=== PATIENT | male | born 1955 | race Caucasian/White ===

== ENCOUNTER 2019-10-18 07:49 | Outpatient (CLI) | payer OTHER, SELFPAY ==
[2019-10-18 08:04] LABS: Add Urine Microscopic? YES; Appearance Urine Clear (Clear); Basophils Absolute Auto 0.03 K/mm3 (0.00-0.10); Basophils Percent Auto 0.5 % (0.0-1.0); Bilirubin Urine Negative (Negative); Blood Urine Negative (Negative); Color Urine Yellow (Yellow); Eosinophils Percent Auto 1.6 % (1.0-6.0); Glucose Urine UA Negative (Negative); Hematocrit 44.5 % (40.0-54.0); Hemoglobin 15.2 g/dL (14.0-18.0); Immature Granulocyte Absolute 0.01 K/mm3 (0.00-0.00); Immature Granulocyte Percent A 0.2 % (0.0-0.0); Ketones Urine Trace (Negative); Leukocyte Esterase Ur Negative (Negative); Lymphocytes Absolute Auto 2.26 K/mm3 (1.10-4.50); Lymphocytes Percent Auto 35.7 % (18.0-42.0); Mean Corpuscular HGB Conc 34.2 g/dL (32.0-36.0); Mean Corpuscular Hemoglobin 28.8 pg (27.0-31.0); Mean Corpuscular Volume 84.4 fL (78.0-102.0); Mean Platelet Volume 10.3 fl (8.7-11.0); Monocytes Absolute Auto 0.51 K/mm3 (0.10-0.90); Monocytes Percent Auto 8.1 % (2.0-11.0); Neutrophils Absolute Auto 3.4 K/mm3 (1.7-7.2); Neutrophils Percent Auto 53.9 % (50.0-70.0); Nitrate Urine Negative (Negative); Platelet Count Result 184 K/mm3 (150-420); Protein Urine Negative (Negative); Red Blood Count 5.27 M/mm3 (4.70-6.10); Red Cell Distribution Width 12.6 % (11.6-14.4); Specific Grav Ur >= 1.030 (1.010-1.020); Urobilinogen Urine 0.2 mg/dL (0.2-1.0); White Blood Count 6.3 K/mm3 (4.8-10.8); pH Urine 5.5 (5.0-8.0)
[2019-10-18 08:09] LABS: Bacteria Urine None seen /hpf; Mucus Urine Moderate /lpf; RBC Urine 0-2 /hpf (0-2); WBC Urine 0-3 /hpf (0-3)
[2019-10-18 09:07] LABS: Alanine Aminotransferase 33 U/L (16-63); Albumin Level 3.9 g/dL (3.4-5.0); Alkaline Phosphatase 102 U/L (46-116); Anion Gap 6.7 mmol/L (7-16); Aspartate Amino Transferase 18 U/L (15-37); Bilirubin,Total 0.5 mg/dL (0.00-1.00); Blood Urea Nitrogen 11 mg/dL (7-18); Calcium 8.8 mg/dL (8.5-10.1); Carbon Dioxide 30 mmol/L (21-32); Chloride 101 mmol/L (98-108); Cholesterol 192 mg/dL (0-200); Estimated Glomerular Filt Rate > 60; Glucose 103 mg/dL (70-99); HDL Direct 41 mg/dL (40-60); LDL Cholesterol Calculated 137 mg/dL (<130); Osmolality Calculated 277 mOsm/kg (285-295); Potassium 3.7 mmol/L (3.5-5.1); Prostate Specific Antigen 0.9 ng/mL (< OR = 4.0); Sodium 134 mmol/L (136-145); Triglycerides 68 mg/dL (0-150)
== END 2019-10-18 07:50 | disposition home or self-care (01) ==
PROVIDERS: PCP Internal Medicine; Visit Provider Internal Medicine
DX: E78.5 Hyperlipidemia, unspecified (principal); R73.01 Impaired fasting glucose; Z12.5 Encounter for screening for malignant neoplasm of prostate
CPT/HCPCS: 36415; 80053; 80061; 81001; 84153; 85025; G0103

== ENCOUNTER 2019-12-07 11:02 | Outpatient (RCR) | payer OTHER, SELFPAY ==
--- NOTE | 2019-12-07 12:01 | PTOPEVAL ---
Thank you for referring Jeff Benson to [facility].? The patient is scheduled to be seen for therapy? ____x/week for ___ weeks. Please review, sign, date and return this plan of care BRENDON. I agree with and certify that the following plan of care is medically necessary. Referring Physician Date Admitting Provider: Attending Provider: Christiano Fong MD Referring Provider: *PT Outpatient Evaluation Start: 12/07/19 11:10 Freq: Status: Active Protocol: Document 12/07/19 11:10 RUST (Rec: 12/07/19 11:57 RUST [email or web address]) Therapy Assessment Status Assessment Status Assessment Status Evaluation Evaluation Information Problem Diagnosis R 4th digit trigger finger. Onset 12/02/19 Additional Evaluation Detail quick dash = Subjective Information patient reports he has had Query Text:As Reported By Patient/ trigger finger of the L thumb Family in the past. he reports he is not sure what caused him to get the trigger finger in the R 4th digit this time. he reports he has started diclofenac and has had an injection to the R 4th digit recently. he reports he has not seen a surgeon yet. Prior Level of Function Comments Additional Prior Level of Function prior to noticing having pain Comments in the R 4th digit, patient had no issues with closing his hand to make a fist and opening the hand back up. Pain Assessment Timing of Pain Assessment Timing of Pain Assessment Assessment Pain Scale Pain Scale Used Numeric (1 - 10) Self Report Pain Assessment Right Finger, Ring Reported Pain Level 2 Greatest Pain Intensity 6 Pain Score Pain Score 2: Self Report Upper Extremity Range of Motion General Upper Extremity Range of Motion Gross Upper Extremity Range of Motion full L fist formation and Comments extension of all fingers without limitations -slight decreased flexion of the R hand ring and small finger flexion Finger Range of Motion Right Ring Finger PIP Joint Flexion - Active 90 Ring Finger PIP Joint Extension - Active 0 Ring Finger DIP Joint Flexion - Active 70 Ring Finger DIP Extension - Active 0 Little Finger PIP Joint Flexion - Active 85 Little Finger PIP Joint Extension - 0 Active Little Finger DIP Joint Flexion - Active 60 Little Finger DIP Joint Extension - 0 Ac
== END 2019-12-23 14:48 | disposition home or self-care (01) ==
LOC: CHSPT 11:02
PROVIDERS: PCP Internal Medicine; Visit Provider Internal Medicine
DX: M65.341 Trigger finger, right ring finger (principal)
CPT/HCPCS: 97035; 97110; 97161

== ENCOUNTER 2021-03-15 07:24 | Outpatient (CLI) | payer OTHER, SELFPAY ==
[2021-03-15 08:31] LABS: Alanine Aminotransferase 24 U/L (16-63); Alkaline Phosphatase 108 U/L (46-116); Anion Gap 11 mmol/L (8-16); Aspartate Amino Transferase < 10 U/L (15-37); Blood Urea Nitrogen 11 mg/dL (7-18); Calcium 9.4 mg/dL (8.5-10.1); Carbon Dioxide 29 mmol/L (21-32); Chloride 100 mmol/L (98-108); Cholesterol 184 mg/dL (0-200); Estimated Glomerular Filt Rate > 60; Glucose 114 mg/dL (70-99); HDL Direct 56 mg/dL (40-60); LDL Cholesterol Calculated 119 mg/dL (<130); Osmolality Calculated 290 mOsm/kg (285-295); Potassium 4.2 mmol/L (3.5-5.1); Prostate Specific Antigen 1.1 ng/mL (< OR = 4.0); Sodium 140 mmol/L (136-145); Total Protein 7.3 g/dL (6.4-8.2); Triglycerides 45 mg/dL (0-150)
[2021-03-15 15:20] LABS: Hemoglobin A1C 5.7 % (<5.7)
== END 2021-03-15 07:25 | disposition home or self-care (01) ==
LOC: CHSLAB 07:26
PROVIDERS: PCP Internal Medicine; Visit Provider Internal Medicine
DX: R73.03 Prediabetes (principal); E78.5 Hyperlipidemia, unspecified; N40.0 Benign prostatic hyperplasia without lower urinary tract symptoms
CPT/HCPCS: 36415; 80053; 80061; 83036; 84153

== ENCOUNTER 2021-11-02 16:38 | Emergency (ER) | payer MEDICARE, SELFPAY ==
--- NOTE | ~2021-11-02 | XR_ITS ---
EXAMINATION: XR wrist LT min 3V DATE: 11/02/2021 17:38 INDICATION: Left wrist pain, initial encounter TECHNIQUE: Posteroanterior, ulnar deviation, oblique, and lateral views of the left wrist were obtain ed. COMPARISON: None available FINDINGS: There is an acute, traumatic, closed, comminuted intra-articular fracture of the distal rad ius. There are 30 degrees of dorsal tilt of the distal articular surface of the radius. The distal fr acture fragment is dorsally displaced approximately one cortical width. An ulnar styloid avulsion is noted. No additional acute osseous abnormality is seen. There is calcified atherosclerosis. Soft tiss ue swelling surrounds the fractures. IMPRESSION: 1. Comminuted intra-articular fracture of the distal radius with dorsal tilt. 2. Ulnar styloid avulsion. Reviewed, dictated and finalized at location L.
--- NOTE | ~2021-11-02 | XR_ITS ---
EXAMINATION: XR elbow LT min 3V DATE: 11/02/2021 17:38 INDICATION: Left elbow pain TECHNIQUE: Anteroposterior, two oblique and lateral views of the left elbow were obtained. COMPARISON: None. FINDINGS: Alignment is normal. No fracture or joint effusion. Joint spaces are normal. There is mild posterior soft tissue swelling. IMPRESSION: 1. Soft tissue swelling without acute osseous abnormality. Reviewed, dictated and finalized at location L.
[2021-11-02 17:04] VITALS: BP 136/83; PULSE 81; RESP 16; TEMP 36.7; O2SAT 97
[2021-11-02] MEDS: MORPHINE SULFATE (*CRX) 4 MG/ML INJ IM (17:44)
[2021-11-02] MEDS: ONDANSETRON HCL ODT 4 MG TABLET PO (17:44)
--- NOTE | 2021-11-02 17:55 | ED.UPPEXIN ---
HPI - Extremity Injury (Upper) General Chief Complaint: Extremity Injury, Upper Stated Complaint: fell off ladder Left elbow and wrist and dizzy Time Seen by Provider: 11/02/21 16:42 Source: patient and RN notes reviewed Mode of arrival: ambulatory Limitations: no limitations History of Present Illness HPI narrative: left elbow and wrist pain after a fall. complaint: injury to: left, elbow and wrist Onset (ago): hour(s) (1) Other Extremity Injury: Left: wrist and elbow Other injuries: none Place: outdoors Severity: mild Severity scale (1-10): 4 Relieving factors: immobilization Exacerbating factors: movement of extremity Context: fall Associated symptoms: other (dizziness) Related Data Home Medications Medication Instructions Recorded Confirmed atorvastatin 10 mg tablet 10 mg PO DAILY 03/09/19 11/02/21 Allergies Allergy/AdvReac Type Severity Reaction Status Date / Time No Known Allergies Allergy Unverified 11/02/21 17:07 Review of Systems Review of Systems: All systems reviewed & are unremarkable except as noted in HPI and below Constitutional: Constitutional: Reports no additional constitutional complaints Eyes: Eyes: Reports no additional eye complaints ENT: Reports system reviewed and no additional complaints, except as documented Cardiovascular: Cardiovascular: Reports no additional cardiovascular complaints Respiratory: Respiratory: Reports no additional respiratory complaints Gastrointestinal: Gastrointestinal: Reports no additional gastrointestinal complaints Musculoskeletal: Musculoskeletal: Reports no additional musculoskeletal complaints and Reports arthralgias Integumentary/Breasts: Skin/Breast: Reports system reviewed and no additional complaints, except as docu Neurologic: Reports system reviewed and no additional complaints, except as documented and Reports dizziness Psychiatric: Psychiatric: Reports no additional psychiatric complaints Endocrine: Endocrine: Reports no additional endocrine complaints Hematologic/Lymphatic: Hematologic/Lymphatic: Reports no additional hematologic/lymphatic complaints Allergic/Immunologic: Allergic/Immunologic: Reports no additional allergic/immunologic complaints PMFSH Past Medical History Medical History Fracture of wrist Surgical History Surgical History H/O uvulectomy Hx of tonsillectomy Status post laser cataract surgery of both eyes Family History Family History Sibling Malignant neoplasm of prostate Exam Const: General: no acute distress Nutritional Appearance: well nourished Orientation/consciousness: patient oriented x3 Limitations: no limitations HENMT: Head: normal to inspection Ears: external ears normal, TM's normal bilaterally and EAC's normal General nose exam: Normal external nose present and Normal nares present Face and sinus: normal facial exam and sinuses nontender Mouth: Yes Normal oral and palatal mucosa present and Yes moist mucous membranes Teeth and gingiva: dentition normal Throat: posterior oropharynx normal Eyes: Conjunctivae: conjunctivae normal Pupils: Equal, round and reactive pupils present EOM: EOMs intact bilaterally Neck: Neck: normal visual inspection, no lymphadenopathy and no meningeal signs Chest: Chest palpation & inspection: normal inspection of the chest Resp: Effort & Inspection: normal respiratory effort Auscultation: clear to auscultation bilaterally Cardio: Rate: regular rate Rhythm: regular rhythm GI: GI Palp: Yes Soft to palpation and No Tenderness to palpation present (GI) Auscultation: normal bowel sounds : General: Yes bladder normal to palpation and Yes no CVA tenderness Back/Spine/Pelvis: Back: no CVA tenderness Skin: General skin exam: normal color Rashes: no rashes Wounds: no wounds Neur
[2021-11-02 18:03] VITALS: BP 138/83; PULSE 88; RESP 18; TEMP 37.2; O2SAT 99
== END 2021-11-02 18:07 | disposition home or self-care (01) ==
PROVIDERS: Emergency Provider Emergency Medicine; PCP Internal Medicine
DX: S62.102A Fracture of unspecified carpal bone, left wrist, initial encounter for closed fracture (principal); W19.XXXA Unspecified fall, initial encounter
CPT/HCPCS: 29125; 73080; 73110; 96372; 99284; A4565; A9270; J2270

== ENCOUNTER 2021-11-05 11:10 | Outpatient (CLI) | payer MEDICARE, SELFPAY ==
--- NOTE | ~2021-11-05 | XR_ITS ---
EXAMINATION: XR shoulder LT min 2V DATE: 11/05/2021 11:31 INDICATION: Left shoulder injury. TECHNIQUE: 4 views of left shoulder were obtained. COMPARISON: None. FINDINGS: Bone alignment is normal. No fracture. There is mild osteoarthritis of glenohumeral joint. Acromioclavicular joint is normal. IMPRESSION: 1. Mild glenohumeral joint osteoarthritis. Reviewed, dictated and finalized at location A.
== END 2021-11-05 11:11 | disposition home or self-care (01) ==
LOC: CHSLAB 11:13
PROVIDERS: PCP Internal Medicine; Visit Provider Internal Medicine
DX: S49.92XA Unspecified injury of left shoulder and upper arm, initial encounter (principal)
CPT/HCPCS: 73030

== ENCOUNTER 2022-03-13 07:51 | Outpatient (CLI) | payer MEDICARE, SELFPAY ==
[2022-03-13 08:04] LABS: Basophils Absolute Auto 0.03 K/mm3 (0.00-0.10); Basophils Percent Auto 0.5 % (0.0-1.0); Eosinophils Absolute Auto 0.09 K/mm3 (0.02-0.50); Eosinophils Percent Auto 1.5 % (1.0-6.0); Hematocrit 43.5 % (37.0-46.0); Hemoglobin 14.6 g/dL (12.4-15.3); Immature Granulocyte Absolute 0.01 K/mm3 (0.00-0.00); Immature Granulocyte Percent A 0.2 % (0.0-0.0); Lymphocytes Absolute Auto 1.78 K/mm3 (1.10-4.50); Lymphocytes Percent Auto 30.4 % (18.0-42.0); Mean Corpuscular HGB Conc 33.6 g/dL (32.0-36.0); Mean Corpuscular Volume 86.5 fL (78.0-102.0); Mean Platelet Volume 10.1 fl (8.7-11.0); Monocytes Absolute Auto 0.55 K/mm3 (0.10-0.90); Monocytes Percent Auto 9.4 % (2.0-11.0); Neutrophils Absolute Auto 3.4 K/mm3 (1.7-7.2); Platelet Count Result 208 K/mm3 (150-420); Red Blood Count 5.03 M/mm3 (4.70-6.10); White Blood Count 5.9 K/mm3 (4.8-10.8)
[2022-03-13 08:14] LABS: Add Urine Microscopic? YES; Appearance Urine Clear (Clear); Bilirubin Urine Negative (Negative); Blood Urine Negative (Negative); Color Urine Yellow (Yellow); Glucose Urine UA Negative (Negative); Ketones Urine Negative (Negative); Leukocyte Esterase Ur Trace (Negative); Nitrate Urine Negative (Negative); Protein Urine Negative (Negative); Specific Grav Ur >= 1.030 (1.010-1.020); Urobilinogen Urine 0.2 mg/dL (0.2-1.0)
[2022-03-13 08:29] LABS: Bacteria Urine Trace /hpf; RBC Urine None seen /hpf (0-2); WBC Urine 0-3 /hpf (0-3)
[2022-03-13 08:30] LABS: Mucus Urine Moderate /lpf
[2022-03-13 09:04] LABS: Alanine Aminotransferase 28 U/L (16-63); Alkaline Phosphatase 96 U/L (46-116); Anion Gap 7 mmol/L (8-16); Aspartate Amino Transferase 15 U/L (15-37); Bilirubin,Total 0.5 mg/dL (0.00-1.00); Blood Urea Nitrogen 12 mg/dL (7-18); Carbon Dioxide 30 mmol/L (21-32); Chloride 108 mmol/L (98-108); Cholesterol 182 mg/dL (0-200); Estimated Glomerular Filt Rate > 60; Glucose 105 mg/dL (70-99); HDL Direct 51 mg/dL (40-60); LDL Cholesterol Calculated 119 mg/dL (<130); Osmolality Calculated 299 mOsm/kg (285-295); Potassium 4.1 mmol/L (3.5-5.1); Sodium 145 mmol/L (136-145); Thyroid Stimulating Hormone 1.96 uIU/mL (0.36-3.74); Total Protein 6.9 g/dL (6.4-8.2); Triglycerides 58 mg/dL (0-150)
[2022-03-13 12:48] LABS: Hemoglobin A1C 5.7 % (<5.7)
== END 2022-03-13 07:52 | disposition home or self-care (01) ==
LOC: CHSLAB 07:53
PROVIDERS: PCP Internal Medicine; Visit Provider Internal Medicine
DX: E78.5 Hyperlipidemia, unspecified (principal); G47.33 Obstructive sleep apnea (adult) (pediatric); Z00.00 Encounter for general adult medical examination without abnormal findings; Z12.5 Encounter for screening for malignant neoplasm of prostate; R73.9 Hyperglycemia, unspecified
CPT/HCPCS: 36415; 80053; 80061; 81001; 83036; 84153; 84443; 85025; G0103

== ENCOUNTER 2023-02-06 10:13 | Emergency (ER) | payer MEDICARE, SELFPAY ==
--- NOTE | ~2023-02-06 | CT_ITS ---
EXAMINATION: CT abdomen pelvis wo con DATE: 02/06/2023 10:57 INDICATION: Abdominal and flank pain TECHNIQUE: Computed tomography (CT) of the abdomen and pelvis was performed without intravenous contr ast. Automated exposure control and iterative reconstruction technique were employed. Exam dose: 680 .51 mGy-cm total exam DLP. COMPARISON: None. FINDINGS: The lung bases are clear. Normal heart size. No pericardial or pleural effusion. The liver, spleen, pancreas, adrenal glands and kidneys are unremarkable on this limited noncontrast examination. The gallbladder is present. No bile duct or pancreatic duct dilatation. There is a 3 mm left uretero vesicle junction calculus with mild left hydroureteronephrosis and left perinephric and periureteral stranding. Right 3.8 cm upper pole renal cyst. There is moderate prostate enlargement. Moderate diffuse bladder wall thickening, likely due to pros tatomegaly. Bilateral fat containing inguinal hernias. Normal appendix. No bowel obstruction or intraperitoneal free air. There are multiple diverticula o f the right and left colon. No evidence of diverticulitis. No bowel obstruction or intraperitoneal free air. There is atherosclerotic calcification of the abdominal aorta, but no abdominal aortic aneurysm. No intraperitoneal or retroperitoneal or pelvic mass lesion or lymphadenopathy or ascites. Small fat containing umbilical hernia. Moderate degenerative disc disease at L4-5 and severe degenerative disc disease at L5-S1. IMPRESSION: 3 mm left ureterovesical junction calculus with mild left hydroureteronephrosis and left perinephric and periureteral stranding 3.8 cm right renal cyst Prostate enlargement Normal appendix Colon diverticulosis Reviewed, dictated and finalized at Location A. Reviewed, dictated and finalized at location L. IMPRESSION: 3 mm left ureterovesical junction calculus with mild left hydroure teronephrosis and left perinephric and periureteral stranding 3.8 cm right renal cyst Prostate enlargement Normal appendix Colon diverticulosis
[2023-02-06 10:20] VITALS: BP 187/87; PULSE 65; RESP 18; TEMP 36.3; O2SAT 100
[2023-02-06] MEDS: SODIUM CHLORIDE 0.9% IV 1,000 ML 999 ML IV CONT (10:35)
--- NOTE | 2023-02-06 10:35 | ED.ABDPAIN ---
HPI - Abdominal Pain General Chief Complaint: Abdominal Pain Stated Complaint: left flank pain Time Seen by Provider: 02/06/23 10:15 Source: patient and family Mode of arrival: ambulatory Limitations: no limitations History of Present Illness HPI narrative: this is a 67-year-old male that presents with left flank pain radiating into his left groin area with some some dysuria with no hematuria pain level about a 6/10 is afebrile with some mild nausea with no vomiting no chest pain no shortness of breath, patient is afebrile has a history of kidney stones. MD elicited complaint: abdominal pain and flank pain Onset (ago): hour(s) Pain Consistency: constant Location: LLQ and L flank Quality: aching Migration to: LLQ and L flank Related Data Home Medications Medication Instructions Recorded Confirmed atorvastatin 10 mg tablet 10 mg PO DAILY 03/09/19 02/06/23 Allergies Allergy/AdvReac Type Severity Reaction Status Date / Time No Known Allergies Allergy Unverified 02/06/23 10:29 Review of Systems Review of Systems: All systems reviewed & are unremarkable except as noted in HPI and below PMFSH Past Medical History Medical History Fracture of wrist Surgical History Surgical History H/O uvulectomy Hx of tonsillectomy Status post laser cataract surgery of both eyes Family History Family History Sibling Malignant neoplasm of prostate Exam Const: General: healthy appearing and no acute distress Nutritional Appearance: well nourished Orientation/consciousness: patient oriented x3 Eyes: Conjunctivae: conjunctivae normal Pupils: Equal, round and reactive pupils present EOM: EOMs intact bilaterally Neck: Neck: normal visual inspection, no lymphadenopathy and no meningeal signs Chest: Chest palpation & inspection: normal inspection of the chest Resp: Effort & Inspection: normal respiratory effort Auscultation: clear to auscultation bilaterally Cardio: Rate: regular rate Rhythm: regular rhythm GI: GI Palp: Yes Soft to palpation Skin: General skin exam: normal color Rashes: no rashes Neuro: General: patient oriented x3 Cranial nerves: Yes Nystagmus not present Extrem: General: normal to inspection Psych: Mental Status: mental status grossly normal Course Course Emergency Course: Patient started on IV fluids, given Toradol IV 30mg for pain relief, Zofran for nausea, blood work performed and reviewed and CT scan of abdomen and pelvis without contrast performed and reviewed with patient, which shows a UVJ stone 3mm on the left with no obstruction no hydronephrosis. Vital Signs Vital signs: Vital Signs Temperature 36.3 C L 02/06/23 10:20 Pulse Rate 65 02/06/23 10:20 Respiratory Rate 18 02/06/23 10:20 Blood Pressure 187/87 H 02/06/23 10:20 Pulse Oximetry 100 02/06/23 10:20 Oxygen Delivery Room Air 02/06/23 10:20 Temperature 36.3 C L 02/06/23 10:20 Pulse Rate 65 02/06/23 10:20 Respiratory Rate 18 02/06/23 10:20 Blood Pressure 187/87 H 02/06/23 10:20 Pulse Oximetry 100 02/06/23 10:20 Oxygen Delivery Room Air 02/06/23 10:20 MDM - Abdominal Pain Lab Data Labs: Lab Results 02/06/23 Range/Units 10:33 Urine Color Pending Urine Appearance Pending Urine pH Pending Ur Specific [place] Pending Urine Protein Pending Urine Glucose (UA) Pending Urine Ketones Pending Ur Blood (Man) Pending Urine Nitrate Pending Urine Bilirubin Pending Urine Urobilinogen Pending Ur Leukocyte Esterase Pending Discharge Plan Discharge Clinical Impression: Urolithiasis Qualifiers: Urinary calculus location: ureter Qualified Code(s): N20.1 - Calculus of ureter Patient Disposition: Home, Self-Care Condition: Stable Instructions: Antibiotic Fo
[2023-02-06 10:37] LABS: Appearance Urine Clear (Clear); Bilirubin Urine Negative (Negative); Blood Urine 1+ (Negative); Color Urine Yellow (Yellow); Glucose Urine UA Negative (Negative); Ketones Urine Negative (Negative); Leukocyte Esterase Ur Negative (Negative); Nitrate Urine Negative (Negative); Protein Urine Trace (Negative); Specific Grav Ur >= 1.030 (1.010-1.020)
[2023-02-06] MEDS: KETOROLAC 30 MG/ML VIAL (*BKC) IV PUSH (10:40)
[2023-02-06] MEDS: ONDANSETRON INJ 4 MG/2 ML VIAL IV PUSH (10:40)
[2023-02-06 10:41] LABS: Add Urine Microscopic? YES; Bacteria Urine Rare /hpf; Mucus Urine Few /lpf; WBC Urine None seen /hpf (0-3)
[2023-02-06 10:46] LABS: Basophils Absolute Auto 0.03 K/mm3 (0.00-0.10); Basophils Percent Auto 0.3 % (0.0-1.0); Eosinophils Absolute Auto 0.02 K/mm3 (0.02-0.50); Eosinophils Percent Auto 0.2 % (1.0-6.0); Hematocrit 45.5 % (37.0-46.0); Hemoglobin 15.4 g/dL (12.4-15.3); Immature Granulocyte Absolute 0.03 K/mm3 (0.00-0.00); Immature Granulocyte Percent A 0.3 % (0.0-0.0); Lymphocytes Absolute Auto 1.01 K/mm3 (1.10-4.50); Mean Corpuscular HGB Conc 33.8 g/dL (32.0-36.0); Mean Corpuscular Hemoglobin 29.5 pg (27.0-31.0); Mean Corpuscular Volume 87.2 fL (78.0-102.0); Mean Platelet Volume 10.1 fl (8.7-11.0); Monocytes Absolute Auto 0.48 K/mm3 (0.10-0.90); Monocytes Percent Auto 5.2 % (2.0-11.0); Neutrophils Absolute Auto 7.6 K/mm3 (1.7-7.2); Platelet Count Result 219 K/mm3 (150-420); Red Blood Count 5.22 M/mm3 (4.70-6.10); Red Cell Distribution Width 12.6 % (11.6-14.4); White Blood Count 9.2 K/mm3 (4.8-10.8)
[2023-02-06 11:05] LABS: Alanine Aminotransferase 22 U/L (16-63); Albumin Level 3.9 g/dL (3.4-5.0); Alkaline Phosphatase 108 U/L (46-116); Anion Gap 10 mmol/L (8-16); Aspartate Amino Transferase 11 U/L (15-37); Bilirubin,Total 0.5 mg/dL (0.00-1.00); Blood Urea Nitrogen 12 mg/dL (7-18); Calcium 9.5 mg/dL (8.5-10.1); Carbon Dioxide 28 mmol/L (21-32); Chloride 102 mmol/L (98-108); Estimated CRCL calculation 70 ml/min; Estimated Glomerular Filt Rate > 60; Glucose 139 mg/dL (70-99); Lipase 19 U/L (16-77); Osmolality Calculated 291 mOsm/kg (285-295); Potassium 3.4 mmol/L (3.5-5.1); Sodium 140 mmol/L (136-145); Total Protein 7.3 g/dL (6.4-8.2)
--- NOTE | 2023-02-06 11:33 | PC.NURSE ---
On 02/06/23, the student, [ cooper choi], provided care and completed [facility] documentation on this patient. I have reviewed the student's documentation and agree with the findings.
[2023-02-06 11:44] VITALS: BP 146/85; PULSE 75; RESP 18; TEMP 36.4; O2SAT 99
== END 2023-02-06 11:40 | disposition home or self-care (01) ==
PROVIDERS: Emergency Provider Emergency Medicine; PCP Internal Medicine
DX: N20.1 Calculus of ureter (principal)
CPT/HCPCS: 36415; 74176; 80053; 81001; 83690; 85025; 96361; 96374; 96375; 99284; J1885; J2405; J7030

== ENCOUNTER 2023-03-17 07:42 | Outpatient (CLI) | payer MEDICARE, SELFPAY ==
[2023-03-17 07:56] LABS: Basophils Absolute Auto 0.02 K/mm3 (0.00-0.10); Basophils Percent Auto 0.3 % (0.0-1.0); Eosinophils Absolute Auto 0.08 K/mm3 (0.02-0.50); Eosinophils Percent Auto 1.4 % (1.0-6.0); Hematocrit 43.5 % (37.0-46.0); Hemoglobin 14.4 g/dL (12.4-15.3); Immature Granulocyte Absolute 0.01 K/mm3 (0.00-0.00); Immature Granulocyte Percent A 0.2 % (0.0-0.0); Lymphocytes Absolute Auto 1.73 K/mm3 (1.10-4.50); Mean Corpuscular HGB Conc 33.1 g/dL (32.0-36.0); Mean Corpuscular Hemoglobin 28.9 pg (27.0-31.0); Mean Corpuscular Volume 87.3 fL (78.0-102.0); Mean Platelet Volume 10.4 fl (8.7-11.0); Monocytes Absolute Auto 0.49 K/mm3 (0.10-0.90); Monocytes Percent Auto 8.5 % (2.0-11.0); Neutrophils Absolute Auto 3.4 K/mm3 (1.7-7.2); Neutrophils Percent Auto 59.6 % (50.0-70.0); Platelet Count Result 235 K/mm3 (150-420); Red Blood Count 4.98 M/mm3 (4.70-6.10); Red Cell Distribution Width 12.7 % (11.6-14.4); White Blood Count 5.8 K/mm3 (4.8-10.8)
[2023-03-17 08:00] LABS: Appearance Urine Clear (Clear); Bilirubin Urine Negative (Negative); Blood Urine Negative (Negative); Color Urine Yellow (Yellow); Glucose Urine UA Negative (Negative); Ketones Urine Negative (Negative); Leukocyte Esterase Ur Negative (Negative); Nitrate Urine Negative (Negative); Protein Urine Negative (Negative); Specific Grav Ur >= 1.030 (1.010-1.020); Urobilinogen Urine 0.2 mg/dL (0.2-1.0)
[2023-03-17 08:13] LABS: Add Urine Microscopic? NO
[2023-03-17 09:02] LABS: Alanine Aminotransferase 31 U/L (16-63); Albumin Level 3.8 g/dL (3.4-5.0); Alkaline Phosphatase 91 U/L (46-116); Anion Gap 5 mmol/L (8-16); Aspartate Amino Transferase 13 U/L (15-37); Bilirubin,Total 0.4 mg/dL (0.00-1.00); Blood Urea Nitrogen 13 mg/dL (7-18); Carbon Dioxide 32 mmol/L (21-32); Chloride 103 mmol/L (98-108); Cholesterol 170 mg/dL (0-200); Estimated Glomerular Filt Rate > 60; Glucose 108 mg/dL (70-99); HDL Direct 46 mg/dL (40-60); LDL Cholesterol Calculated 111 mg/dL (<130); Osmolality Calculated 291 mOsm/kg (285-295); Potassium 3.9 mmol/L (3.5-5.1); Prostate Specific Antigen 0.8 ng/mL (< OR = 4.0); Sodium 140 mmol/L (136-145); Thyroid Stimulating Hormone 1.85 uIU/mL (0.36-3.74); Total Protein 6.8 g/dL (6.4-8.2); Triglycerides 65 mg/dL (0-150)
[2023-03-17 15:42] LABS: Hemoglobin A1C 5.4 % (<5.7)
== END 2023-03-17 07:43 | disposition home or self-care (01) ==
LOC: CHSLAB 07:45
PROVIDERS: PCP Internal Medicine; Visit Provider Internal Medicine
DX: E78.5 Hyperlipidemia, unspecified (principal); R73.09 Other abnormal glucose; Z12.5 Encounter for screening for malignant neoplasm of prostate
CPT/HCPCS: 36415; 80053; 80061; 81003; 83036; 84153; 84443; 85025; G0103

== ENCOUNTER 2024-03-26 07:13 | Outpatient (CLI) | payer MEDICARE, SELFPAY ==
[2024-03-26 07:33] LABS: Hematocrit 43.1 % (37.0-46.0); Hemoglobin 14.7 g/dL (12.4-15.3); Mean Corpuscular HGB Conc 34.1 g/dL (32-36); Mean Corpuscular Hemoglobin 29.3 pg (27.0-31.0); Mean Platelet Volume 9.8 fl (8.7-11.0); Platelet Count Result 207 K/mm3 (150-420); Red Blood Count 5.01 M/mm3 (4.70-6.10); Red Cell Distribution Width 12.8 % (11.6-14.4); White Blood Count 5.4 K/mm3 (4.8-10.8)
[2024-03-26 07:49] LABS: Add Urine Microscopic? NO; Appearance Urine Clear (Clear); Bilirubin Urine Negative (Negative); Blood Urine Negative (Negative); Color Urine Yellow (Yellow); Glucose Urine UA Negative (Negative); Ketones Urine Trace (Negative); Leukocyte Esterase Ur Negative (Negative); Nitrate Urine Negative (Negative); Protein Urine Negative (Negative); Specific Grav Ur 1.025 (1.010-1.020)
[2024-03-26 08:41] LABS: Alanine Aminotransferase 24 U/L (16-63); Alkaline Phosphatase 100 U/L (46-116); Anion Gap 7 mmol/L (4-12); Aspartate Amino Transferase 12 U/L (15-37); Bilirubin,Total 0.8 mg/dL (0.00-1.00); Blood Urea Nitrogen 17 mg/dL (7-18); Calcium 9.3 mg/dL (8.5-10.1); Carbon Dioxide 31 mmol/L (21-32); Chloride 104 mmol/L (98-108); Cholesterol 163 mg/dL (0-200); Estimated Glomerular Filt Rate > 60; Glucose 92 mg/dL (70-99); HDL Direct 57 mg/dL (40-60); LDL Cholesterol Calculated 100 mg/dL (<130); Osmolality Calculated 295 mOsm/kg (285-295); Potassium 4.2 mmol/L (3.5-5.1); Prostate Specific Antigen 0.6 ng/mL (< OR = 4.0); Sodium 142 mmol/L (136-145); Total Protein 6.8 g/dL (6.4-8.2); Triglycerides 31 mg/dL (0-150)
== END 2024-03-26 07:14 | disposition home or self-care (01) ==
PROVIDERS: PCP Internal Medicine; Visit Provider Internal Medicine
DX: Z12.5 Encounter for screening for malignant neoplasm of prostate (principal); N28.1 Cyst of kidney, acquired; E78.5 Hyperlipidemia, unspecified
CPT/HCPCS: 36415; 80053; 80061; 81003; 84153; 84443; 85027; G0103

== ENCOUNTER 2024-03-30 10:52 | Outpatient (CLI) | payer MEDICARE, SELFPAY ==
--- NOTE | ~2024-03-30 | US_ITS ---
EXAM: RENAL ULTRASOUND HISTORY: R RENAL CYST/HYPERLIPIDEMIA COMPARISON: Reference is made to CT examination dated 02/06/2023 FINDINGS: RIGHT KIDNEY: 11.4 x 6.6 x 5.9 cm. The parenchyma of the right kidney is increased in echogenicity. No hydronephrosis or bulky renal calculi. Exophytic from the upper pole of the right kidney is a well-circumscribed anechoic avascular structur e measuring 37 x 38 x 37 mm consistent with a simple cyst for which no further follow-up is needed. LEFT KIDNEY: 11.1 x 5.5 x 7.0 cm No hydronephrosis or renal calculi. The parenchyma of the left kidney is increased in echogenicity. BLADDER: The bladder is only minimally distended, and otherwise unremarkable. The prostate gland is p rominent measuring 4.4 x 4.8 cm and demonstrating mass effect on the base of the bladder. IMPRESSION: No hydronephrosis or renal calculi. Findings suggesting medical renal disease. Simple cyst within the upper pole of the right kidney for which no further follow-up is needed. Prominence of the prostate gland, demonstrating mass effect on the base of the bladder, as detailed a prem. Reviewed, dictated and finalized at location A. CARRIER DRIVER IMPRESSION: No hydronephrosis or renal calculi. Findings suggesting medical renal disease. Simple cyst within the upper pole of the right kidney for which no further foll ow-up is needed. Prominence of the prostate gland, demonstrating mass effect on the base of the bladder, as detailed above.
== END 2024-03-30 10:53 | disposition home or self-care (01) ==
PROVIDERS: PCP Internal Medicine; Visit Provider Internal Medicine
DX: E78.5 Hyperlipidemia, unspecified (principal); N28.1 Cyst of kidney, acquired
CPT/HCPCS: 76775

== ENCOUNTER 2024-04-14 14:29 | Outpatient (CLI) | payer MEDICARE, SELFPAY ==
--- NOTE | 2024-04-14 14:34 | ECG_ITS ---
Test Date: 2024-04-14 14:53:08 Measurements Intervals [place] Rate: 63 P: 60 AL: 167 QRS: 66 QRSD: 93 T: 73 QT: 373 QTc: 382 Interpretive Statements SINUS RHYTHM No previous ECG available for comparison Electronically Signed On 04-14-2024 16:43:44 [employer]ILD [employer] by Marie Vega M.D.
== END 2024-04-14 14:30 | disposition home or self-care (01) ==
PROVIDERS: PCP Internal Medicine; Visit Provider Anesthesiology
DX: E78.5 Hyperlipidemia, unspecified (principal)
CPT/HCPCS: 93005

== ENCOUNTER 2024-04-20 01:50 | Day surgery (SDC) | payer MEDICARE, SELFPAY ==
--- NOTE | 2024-04-08 13:03 | PC.NURSE ---
Report to the Outpatient Waiting Room, entrance under the green pavilion located off [facility], at time 7 AM on date _04/20/24 . Planned Procedure Time: __9 AM .? Time changes happen often and if your time is changed the preop area will call you the afternoon before. - You and your visitor will be asked to self-screen and do not enter if you have any COVID symptoms. Please call surgeon if you need to reschedule. - A mask is optional within the hospital at this time. Patients may have clear liquids (water, carbonated beverages, clear teas, apple juice) until 3 hours prior to surgery(6 AM) with a maximum of 20 ounces. - No food from midnight until time of surgery and no smoking. This includes no chewing gum, candy or mints. Take only the following medications with a SIP of water on the morning of surgery: __NONE DO NOT STOP ANY OF YOUR OTHER PRESCRIPTION MEDICATIONS PRIOR TO SURGERY EXCEPT THE FOLLOWING Medications to discontinue per physician NONE Please no make-up, nail bengali, hairspray, perfume, deodorant, or body powder the day of surgery.? No jewelry (including any body piercings) or valuables the day of surgery, leave them at home.? Please take a shower or bath the night before, or the morning of, surgery with an antibacterial soap.? Wear comfortable, loose fitting clothing.? Children are encouraged to wear pajamas. - Jewelry must be removed prior to entering the operating room.? Rings and piercings that are not removed may be cut off. - The hospital will not accept responsibility for valuables.? - Please leave all valuables, including medications, at home the day of surgery. If you are going home after surgery, a licensed dairy truck driver must drive you home.? - NO public transportation without another adult if you receive anesthesia. - We recommend that an adult stay with you for 24 hours following discharge. - We also recommend that you do not drive, make important decision, drink alcoholic beverages, or take any drugs that were not prescribed by your health care provider for at least 24 hours after your discharge time. Follow any additional instructions given to you from your surgeon. Telephone instructions given to __PATIENT and asked if any additional questions and then verbalized understanding. Patient advised to call surgeon office or pre surgery nurse liaison [phone] if any additional questions.
[2024-04-08 13:18] VITALS: BMI 27.8
[2024-04-20] VITALS (9 sets, daily range): BP systolic 119–145; BP diastolic 62–86; PULSE 61–76; RESP 14–20; TEMP 36.1–36.5; O2SAT 98–100
[2024-04-20] MEDS: LACTATED RINGERS 1,000 ML 30 ML IV CONT ×3 (09:10→13:18)
[2024-04-20] MEDS: KETOROLAC 15 MG/ML VIAL (*BKC) IV PUSH (09:10)
[2024-04-20] MEDS: ACETAMINOPHEN 500 MG TABLET 1000 MG PO (09:10)
--- NOTE | 2024-04-20 09:24 | WPDHPUPDATE1 ---
History and Physical Update Update Date/Time: 04/20/24 09:24 History and Physical has been reviewed, including an updated exam of the patient. There are NO changes in the patient's condition. Risks, benefits, and alternatives have been discussed and questions answered. Patient agrees to proceed with procedure.
--- NOTE | 2024-04-20 09:25 | P.HP_ITS ---
H&P: HPI History of Present Illness Date/Time: 04/20/24 09:25 Chief Complaint: Umbilical hernia, bilateral inguinal hernia Narrative: This is a 68-year-old man who presents with umbilical and bilateral inguinal he rnias. He now presents for repair. He reports no changes since last seen in the office 1 month ago. Review of Systems Review of Systems: All systems reviewed & are unremarkable except as noted in HPI and below Constitutional: Constitutional: Denies chills, Denies fever(s), Denies headache(s) and Denies weight loss Eyes: Eyes: Denies change in vision ENT: Denies dizziness, Denies headache(s), Denies neck mass and Denies throat swelling Cardiovascular: Cardiovascular: Denies chest pain, Denies lightheadedness and Denies dyspnea Respiratory: Respiratory: Denies cough, Denies dyspnea and Denies wheezing Gastrointestinal: Gastrointestinal: Denies abdominal pain, Denies change in bowel habits, Denies nausea and Denies vomiting Genitourinary: Genitourinary: Denies hematuria and Denies dysuria Musculoskeletal: Musculoskeletal: Reports as per HPI Integumentary/Breasts: Skin/Breast: Reports as per HPI Neurologic: Denies dizziness and Denies headache(s) Allergic/Immunologic: Allergic/Immunologic: Denies throat swelling and Denies wheezing COUNTS INCLUDE 234 BEDS AT THE [facility] Past Medical History Medical History (Updated 03/18/24 @ 10:23 by Nneka Peres) Anxiety Dyslipidemia Type 2 diabetes mellitus SKYLER (obstructive sleep apnea) Fracture of wrist Surgical History Surgical History H/O wrist surgery Hx of tonsillectomy H/O uvulectomy Status post laser cataract surgery of both eyes Family History Family History Sibling Malignant neoplasm of prostate Other Heart disease Hypertension Social History Social History Smoking status: Never smoker Alcohol intake: current Do You Feel Safe in your Home?: Yes Lack of Transportation: No Lack of Food: Never True Current Housing: I Have Housing Concerned About Future Housing: No Difficulty Paying Gas/Electric Bills: No Difficulty Paying for Meds: No Currently Unemployed: No Education: High School Diploma/GED Difficulty w/ Childcare or Family Care: No Living arrangements: with family Spiritual care concerns: No Meds Home Medications and Allergies Home Medications ?Medication ?Instructions ?Recorded ?Confirmed ?Type atorvastatin 10 mg tablet 10 mg PO DAILY 03/09/19 04/08/24 History tadalafil 10 mg tablet (Cialis) 10 mg PO DAILY PRN sexual activity 03/18/24 04/08/24 History Allergies Allergy/AdvReac Type Severity Reaction Status Date / Time No Known Allergies Allergy Verified 04/08/24 13:03 Exam Const: General: no acute distress and alert Orientation/consciousness: patient oriented x3 HENMT: Head: normocephalic and atraumatic Ears: hearing grossly normal bilaterally Face/Nose/Sinus: Normal nares present Mouth: Yes Normal oral and palatal mucosa present Eyes: Periorbital: periorbital findings normal Sclera: sclerae normal EOM: EOMs intact bilaterally Neck: Neck: normal visual inspection, no lymphadenopathy and trachea midline Chest: Chest palpation & inspection: normal inspection of the chest Resp: Effort & Inspection: normal respiratory effort Auscultation: clear to auscultation bilaterally Cardio: Jugular venous distension: no JVD Rate: regular rate Rhythm: regular rhythm Heart sounds: S1 normal heart sound present and S2 normal heart sound present Peripheral pulses: Peripheral pulses 2+ throughout GI: Inspection: normal to inspection GI Palp: Yes Soft to palpation, No Tenderness to palpation present (GI), No Guarding due to palpation present (GI), Yes Hernia present umbilical < 3 cm and No Rebound tenderness present Percussion: Yes normal to percussion Auscultation: normal bowel sounds : General: Yes no CVA tenderness Scrotum: inguinal hernia bilateral Back/Spine/Pelvis: Back: no CVA tenderness Neuro: General: patient oriented x3, no focal motor deficits and CN's II-XI intact bilaterally Cognition (Neuro): normal cognition Speech: normal speech Motor exam (neuro): 5/5 motor strength present throughout Extrem: General: capillary refill normal and no clubbing, cyanosis or edema Assessment and Plan Assessment and plan (1) Umbilical hernia: Qualifiers: Obstruction and gangrene presence: without obstruction or gangrene Qualified Code(s): K42.9 - Umbilical hernia without obstruction or gangrene Code(s): K42.9 - Umbilical hernia without obstruction or gangrene Status: Acute Assessment and Plan: I have recommended laparoscopic bilateral inguinal hernia repair with mesh, de Chris assisted, and open umbilical hernia repair. I have discussed the procedure, risks, benefits, and alternatives with the patient. All questions answered. No changes since last seen in office. (2) Bilateral inguinal hernia: Qualifiers: Obstruction and gangrene presence: without obstruction or gangrene Recurrence: non-recurrent Qualified Code(s): K40.20 - Bilateral inguinal hernia, without obstruction or gangrene, not specified as recurrent Code(s): K40.20 - Bilateral inguinal hernia, without obstruction or gangrene, not specified as recurrent Status: Acute
--- NOTE | 2024-04-20 09:37 | WPDANESEPPF ---
Anes - Initial Pre Proc Eval Procedure: Operation Date: 04/20/24 10:00 Proposed Procedures p Laparoscopic Bilateral Inguinal Hernia Repair with Mesh, Davinci Assisted - Nathan Aviles DO s Open Umbilical Hernia Repair - Nathan Aviles DO Date/Time: 04/20/24 09:37 Surgeon: Nathan Aviles DO Pre Op Diagnosis: Umb Hernia 1 cm, Bilateral Ing Hernia Patient Data Age: 68 Gender: M Height: 1.8 m Weight: 90.75 kg Allergies Allergy/AdvReac Type Severity Reaction Status Date / Time No Known Allergies Allergy Verified 04/08/24 13:03 Home Medications ?Medication ?Instructions ?Recorded ?Confirmed ?Type atorvastatin 10 mg tablet 10 mg PO DAILY 03/09/19 04/08/24 History tadalafil 10 mg tablet (Cialis) 10 mg PO DAILY PRN sexual activity 03/18/24 04/08/24 History Laboratory Tests 04/20/24 08:45 Blood Type Pending Antibody Screen Pending Patient hx anesthesia problems: none Family hx anesthesia problems: none Results Review: All pre-operative results and documents have been reviewed as part of the pre-operative evaluation. FOR[facility]LY [facility] Past Medical History Medical History Anxiety Dyslipidemia Type 2 diabetes mellitus SKYLER (obstructive sleep apnea) Fracture of wrist Surgical History Surgical History H/O wrist surgery Hx of tonsillectomy H/O uvulectomy Status post laser cataract surgery of both eyes Family History Family History Sibling Malignant neoplasm of prostate Other Heart disease Hypertension Social History Social History Smoking status: Never smoker Alcohol intake: current Do You Feel Safe in your Home?: Yes Lack of Transportation: No Lack of Food: Never True Current Housing: I Have Housing Concerned About Future Housing: No Difficulty Paying Gas/Electric Bills: No Difficulty Paying for Meds: No Currently Unemployed: No Education: High School Diploma/GED Difficulty w/ Childcare or Family Care: No Living arrangements: with family Spiritual care concerns: No Anes - Eval Final PreProcedure Day of Procedure 04/20/24 09:37 Patient weight: overweight Heart: regular rate and rhythm Lungs: clear to auscultation Airway: Mallampati scale class II Neurological: alert and oriented Last oral intake: >/= 8 hours ASA classification: III Emergent: no Anesthetic plan: proceed Anesthesia type and monitoring: general ETT and standard monitoring Results Review: All pre-operative results and documents have been reviewed as part of the pre-operative evaluation. Informed Consent: The patient's anesthetic plan and its attendant risks and benefits were discussed with the patient/family/POA. Questions were solicited and answers provided to the satisfaction of the patient/family/POA.
[2024-04-20] MEDS: ceFAZolin 2 GM/D5W 50 ML 2 GM/50 ML BAG IVPB (09:54)
[2024-04-20] MEDS: BUPIVACAINE/EPINEPHRINE 0.5% 10 ML VIAL 30 ML INFILTRATE (10:28)
--- NOTE | 2024-04-20 12:09 | P.OP_ITS ---
Procedure Note - Detailed Date of Procedure 04/20/24 Pre-op Diagnosis Umb Hernia 1 cm, Bilateral Ing Hernia Post-op Diagnosis Same (1cm umbilical hernia, bilateral indirect inguinal hernias) Procedure Performed 1. Open 1 cm umbilical hernia repair 2. Laparoscopic bilateral inguinal hernia repair with mesh, da Chris assisted Surgeon Nathan Aviles DO Anesthesia General and Local (0.5% bupivacaine with epinephrine) Indications This is a 68-year-old man who presented with bilateral inguinal hernias and an umbilical hernia. He was primarily experiencing symptoms at the left inguinal hernia. He noticed a bulge and discomfort with activity. He was found to have reducible bilateral inguinal hernias on exam as well as a small 1 cm umbilical hernia. Discussions were made with the patient treatment options and decision was made to proceed with open 1 cm umbilical hernia repair laparoscopic bilateral hernia repair with mesh, de Chris assisted. Findings The patient was found to have a 1 cm umbilical hernia. This was repaired at the conclusion of the robotic portion of the procedure. The umbilical hernia was repaired primarily using 0 Ethibond [id number] sutures. The patient also had bilateral indirect inguinal hernias. The left inguinal hernia was slightly larger and contained a loop of sigmoid colon. A robotic transabdominal preperitoneal approach was utilized for repair of each side. Once a wide enough preperitoneal pocket was created and the hernia sacs were reduced, I then placed a large 3DMax mid mesh overlying each myopectineal orifice. Description of Procedure Procedure as well as risks, benefits, and alternatives were discussed with the patient. Written consent was obtained and placed in chart prior to procedure. Patient was brought back to surgical suite. He was placed supine on operating table. Time-out was done to confirm patient and procedure. He was then intubated by Anesthesia Department. His abdomen was prepped and draped in sterile fashion using chlorhexidine prep. 0.5% bupivacaine with epinephrine was infiltrated at each location for incision. An 8 mm incision was made in the left lateral abdomen, and a 5 mm Optiview trocar was advanced through the abdominal layers under direct visualization. Once inside the abdominal cavity, carbon dioxide insufflation was used to create a pneumoperitoneum. A camera was inserted and the abdominal cavity was inspected. The patient was placed in slight Trendelenburg position. An 8 millimeter incision was made on the right lateral abdomen and an 8 millimeter trocar was inserted under direct visualiza tion. Another 8 millimeter incision was made just superior to the umbilicus and an 8 millimeter trocar was inserted under direct visualization. The 5 mm port was then removed and this was replaced with another 8 mm robotic port. The robotic arms were brought up to the patient's bedside and secured to the ports. The camera and instruments were inserted. I then moved over to the robotic console and took control of the camera and instruments. After careful inspection of the abdominal cavity, I began scoring the peritoneum along the left lower quadrant using scissors with electrocautery. The preperitoneal plane was entered and this was carefully dissected caudally along the inferior epigastric vessels. Careful dissection with scissors with electrocautery and blunt dissection was used to continue this dissection. I dissected far enough laterally to allow for mesh placement, and also dissected medially to identify the pubic arch and Andres's ligament. The hernia sac was identified and carefully dissected posteriorly. The cord contents were also identified and the peritoneum was carefully dissected far enough posteriorly to allow for mesh placement. Once an adequate pocket was created, I then placed the mesh within the preperitoneal pocket and carefully unfolded it. The mesh was centered on the hernia defect with adequate overlap circumferentially. The inferior edge of the mesh was inspected to ensure that it was far enough away from the peritoneal edge. The mesh appeared in proper position overlying the entire myopectineal orifice. The mesh was secured using 3-0 Vicryl simple interrupted sutures in Andres's ligament, the superior medial edge, and superior lateral edge of the mesh. The peritoneum was then closed over the mesh using a 3-0 V-lock running absorbable suture. I then began scoring the peritoneum along the right lower quadrant using scissors with electrocautery. The preperitoneal plane was entered and this was carefully dissected caudally along the inferior epigastric vessels. Careful dissection with scissors with electrocautery and blunt dissection was used to continue this dissection. I dissected far enough laterally to allow for mesh placement, and also dissected medially to identify the pubic arch and Andres's ligament. The hernia sac was identified and carefully dissected posteriorly. The cord contents were also identified and the peritoneum was carefully dissected far enough posteriorly to allow for mesh placement. Once an adequate pocket was created, I then placed the mesh within the preperitoneal pocket and carefully unfolded it. The mesh was centered on the hernia defect with adequate overlap circumferentially. The inferior edge of the mesh was inspected to ensure that it was far enough away from the peritoneal edge. The mesh appeared in proper position overlying the entire myopectineal orifice. The mesh was secured using 3-0 Vicryl simple interrupted sutures in Andres's ligament, the superior medial edge, and superior lateral edge of the mesh. The peritoneum was then closed over the mesh using a 3-0 V-lock running absorbable suture. The robotic instruments were removed. The robotic arms were disengaged from the ports and moved away from the bedside. The patient was flattened out in bed, the ports were removed under direct visualization, and the pneumoperitoneum was released. The umbilical incision was extended to about a 3 cm curvilinear incision just superior to umbilicus. Electrocautery was then used for hemostasis dissection through the subcutaneous tissue. The hernia sac was identified and then cleared circumferentially using electrocautery. It was also freed from the umbilical skin careful dissection electrocautery. The hernia sac was then reduced back into the abdominal cavity. The hernia defect measured 1 cm. The fascia was cleared circumferentially around the hernia using electrocautery. The decision was then made to repair the hernia primarily using 0 Ethibond gpolih-wq-khlaa sutures. A total of 2 sutures were placed in a vertical fashion. The sutures were then tied down in place and the repair was inspected and appeared secure. An 0 Ethibond lelkoo-tm-whapw suture was also placed in the suprapubic port site to prevent herniation in this area. No other abnormalities were noted. The umbilical stalk was then reapproximated the fascia using a 3-0 Vicryl simple interrupted suture. The deep dermis was then also approximated using 3-0 Vicryl inverted interrupted sutures. The skin of the incisions was approximated using 4-0 Monocryl subcuticular suture, and Exofin glue was applied on top. The patient was awakened from anesthesia, extubated, and transferred to recovery. Implants Large left and right 3DMax mid mesh Estimated Blood Loss 10 Complications No immediate complications Condition Stable Disposition Same day [facility] Billing Surgery - Charge Forward: Surgery Billing
[2024-04-20] MEDS: fentaNYL CITRATE INJ (*CRX) 100 MCG/2 ML VIAL 25 MCG IV PUSH (13:17)
== END 2024-04-20 15:28 | disposition home or self-care (01) ==
PROVIDERS: PCP Internal Medicine; Visit Provider Surgery
PROC: 8E0Y4CZ Robotic Assisted Procedure of Lower Extremity, Percutaneous Endoscopic Approach (ICD-10-PCS; CPT 49650; principal; 2024-04-20 10:00)
PROC: (CPT 49591; 2024-04-20 10:00)
DX: K40.20 Bilateral inguinal hernia, without obstruction or gangrene, not specified as recurrent (principal); K42.9 Umbilical hernia without obstruction or gangrene; E78.5 Hyperlipidemia, unspecified; F41.9 Anxiety disorder, unspecified; E11.9 Type 2 diabetes mellitus without complications; G47.33 Obstructive sleep apnea (adult) (pediatric); Z98.890 Other specified postprocedural states; Z80.42 Family history of malignant neoplasm of prostate; Z82.49 Family history of ischemic heart disease and other diseases of the circulatory system
CPT/HCPCS: 49591; 49650; S2900; 36415; 86850; 86900; 86901; A9270; C1781; J0690; J1100; J1596; J1885; J2003; J2250; J2371; J2405; J2704; J3010; J7030; J7120

== ENCOUNTER 2025-03-22 07:13 | Outpatient (CLI) | payer MEDICARE, SELFPAY ==
--- OUTSIDE RECORDS SUMMARY | 2025-03-22 07:18 | XMS_ITS | Clinical Summary ---
Author Organization [facility] Address [facility] [place] [address] Care Team Providers Care Physician Ophthalmologist Name Role Phone Christiano Fnog MD Primary Care Provider [phone] Allergies No known active allergies Medications atorvastatin (LIPITOR) 10 MG tablet Take 1 tablet by mouth daily. 10/10/2021 Active traMADol (ULTRAM) 50 MG tablet Take 50 mg by mouth 2 (two) times daily as needed. 11/02/2021 Active HYDROcodone-letty taminophen (NORCO) 5-325 MG tabletIndicatio ns:Acute Pain < 7 Day Supply Take 1-2 tablets by mouth every 6 (six) hours as needed for Pain. Indications: Acute Pain < 7 Day Supply 30 tablet 11/08/2021 Active Active Problems Problem Noted Date Diagnosed Date Complex tear of lateral meni scus of right knee as current injury, subsequent encounter 01/03/2022 Other closed intra-articular fracture of distal end of left radius, initial encounter 11/06/2021 Social History Tobacco Use Types Packs/Day Years Used Date Smoking Tobacco: Never Smokeless Tobacco: Never Alcohol Use Standard Drinks/Week Comments Yes 11.7 (1 standard drink = 0.6 oz pure alcohol) one beer at night Sex and Gender Information Value Date Recorded Sex Assigned at Not on file Legal Sex Male 12:54 PM CDT Gender Identity Not on file Sexual Orientation Not on file Last Filed Vital Signs Vital Sign Reading Time Taken Comments Blood Pressure 138/89 11/08/2021 11:57 AM CDT Pulse 60 11/08/2021 11:57 AM CDT Temperature 36.1 C (96.9 F) 11/08/2021 11:57 AM CDT Respiratory Rate 20 11/08/2021 11:57 AM CDT Oxygen Saturation 95% 11/08/2021 11:57 AM CDT Inhaled Oxygen Concentration - - Weight 91.6 kg (202 lb) 01/03/2022 3:09 PM CDT Height 180.3 cm (5' 11) 01/03/2022 3:09 PM CDT Body Mass Index 28.17 01/03/2022 3:09 PM CDT Plan of Treatment Health Maintenance Due Date Last Done Comments Colorectal Cancer Screening Colonoscopy (10 Years) 1956 Hepatitis C 1974 DTaP, Tdap and Td Vaccines ( 1 - Tdap) 1975 Pneumococcal Vaccine: 50+ Years (1 of 1 - PCV) 2006 Zoster Vaccines (1 of 2) 2006 Annual Medicare Wellness Visit 2021 COVID-19 Vaccine (4 - 2024-2 6 season) 2024 03/14/2021, 07/28/2020, 06/30/2020 Influenza Adult (#1) 2025 RSV Immunization or 60+ Years (1 - 1-dose 75+ series) 2031 Hepatitis A Vaccines Aged Out No long er eligible based on patient's age to complete this topic Meningococcal B Vaccine Aged Out No l onger eligible based on patient's age to complete this topic Meningococcal Vaccine Aged Out No [place] eligible based on patient's age to complete this topic RSV Immunizations Under 20 Months Aged Out No longer eligible b ased on patient's age to complete this topic Medical Devices Implanted Type Area Frame And Scrap Crusher Device Identifier Shelf Expiration Date Model / Serial / Lot Plate 2mm Long 76mm Intermediate Anatomical Variax Bone Radius Left Distal Volar - [id number] Implanted:Qty: 1 on 11/08/2021 by Sammy Earl MD at [facility] Plate Left: Radius [employer] [id number] / / Screw Bone 2.3mm 14mm Variax Titanium Distal Radius Locking T7 Drive - [id number] Implanted:Qty: 2 on 11/08/2021 by Sammy Earl MD at [facility] Screw Left: Radius [employer] [id number] / / Screw Bone 2.3mm 16mm Variax Titanium Distal Radius Locking T7 Drive - [id number] Implanted:Qty: 4 on 11/08/2021 by Sammy Earl MD at [facility] Screw Left: Radius [employer] [id number] / / Screw Bone 2.3mm 26mm Variax Titanium T7 Full Thread Radius Distal Lock Sterile - [id number] Implanted:Qty: 1 on 11/08/2021 by Sammy Earl MD at [facility] Screw Left: Radius [employer] [id number] / / Screw Bone 2.7mm 22mm Variax Titanium T7 Full Thread Lock Nonsterile Distal Radius Lock Plate System - [id number] Implanted:Qty: 2 on 11/08/2021 by Sammy Earl MD at [facility] Screw Left: Radius [employer] [id number] / / Screw Gem Bone 2.7mm X 16mm - [id number] Implanted:Qty: 1 on 11/08/2021 by Sammy Earl MD at [facility] Screw Left: Radius [employer] [id number] / / Locking Screw 2.7 Mm Implanted:Qty: 1 on 11/08/2021 by Sammy Earl MD at [facility] Left: Radius [id number] / / Locking Screw 2.4 Mm Implanted:Qty: 1 on 11/08/2021 by Sammy Earl MD at [facility] Left: Radius [employer] [id number] / / Locking Screw 2.4 Mm Implanted:Qty: 2 on 11/08/2021 by Sammy Earl MD at [facility] Left: Radius [employer] [id number] / / Explanted Type Area Frame And Scrap Crusher Device Identifier Shelf Expiration Date Model / Serial / Lot Drill Bit 2.0 Explanted:Qty: 1 on 11/08/2021 at [facility] Left: Radius [employer] [id number] / / Insurance [place] [employer] [place] Care Teams Physician Ophthalmologist Relationship Specialty Start Date End Date Christiano Fong MD [address] [place] [address] PCP - General INTERNAL MEDICINE 11/05/21
[2025-03-22 07:30] LABS: Add Urine Microscopic? NO; Appearance Urine Clear (Clear); Glucose Urine UA Negative (Negative); Hematocrit 43.9 % (37.0-46.0); Hemoglobin 14.4 g/dL (12.4-15.3); Leukocyte Esterase Ur Negative (Negative); Mean Corpuscular HGB Conc 32.8 g/dL (32-36); Mean Corpuscular Hemoglobin 29.0 pg (27.0-31.0); Mean Corpuscular Volume 88.5 fL (78.0-102.0); Nitrate Urine Negative (Negative); Platelet Count Result 237 K/mm3 (150-420); Red Blood Count 4.96 M/mm3 (4.70-6.10); Specific Grav Ur >= 1.030 (1.010-1.020); White Blood Count 5.7 K/mm3 (4.8-10.8)
[2025-03-22 08:04] LABS: Alanine Aminotransferase 24 U/L (6-50); Albumin Level 4.6 g/dL (3.5-5.1); Alkaline Phosphatase 86 U/L (38-126); Anion Gap 8 mmol/L (4-12); Aspartate Amino Transferase 24 U/L (17-59); Bilirubin,Total 0.7 mg/dL (0.2-1.3); Blood Urea Nitrogen 14 mg/dL (9-20); Calcium 9.7 mg/dL (8.4-10.2); Carbon Dioxide 28 mmol/L (22-30); Chloride 107 mmol/L (98-107); Cholesterol 168 mg/dL (0-200); Estimated Glomerular Filt Rate > 60; Glucose 108 mg/dL (65-110); HDL Direct 59 mg/dL; Osmolality Calculated 297 mOsm/kg (285-295); Potassium 4.0 mmol/L (3.4-5.0); Sodium 143 mmol/L (137-145); Total Protein 7.1 g/dL (6.3-8.2); Triglycerides 53 mg/dL (<150)
[2025-03-22 08:35] LABS: Prostate Specific Antigen 1.3 ng/mL (< OR = 4.0); Thyroid Stimulating Hormone 1.620 uIU/mL (0.465-4.680)
== END 2025-03-22 07:14 | disposition home or self-care (01) ==
PROVIDERS: PCP Internal Medicine; Visit Provider Internal Medicine
DX: E78.5 Hyperlipidemia, unspecified (principal); Z12.5 Encounter for screening for malignant neoplasm of prostate
CPT/HCPCS: 36415; 80053; 80061; 81003; 84153; 84443; 85027; G0103